=== PATIENT | female | born 1950 | race Caucasian/White ===

== ENCOUNTER → 2018-03-01 | Outpatient (CLI) | payer MEDICARE, BC ==
[~2018-03-01] MED LIST: REGADENOSON 0.4 MG/5 ML DISP.SYRIN. IV ONE
--- NOTE | 2018-03-01 12:01 | PCVCIMAG ---
APPROVED REPORT Study performed: 03/01/2018 08:28:16 EXAM: Comprehensive 2D, Doppler, and color-flow Echocardiogram Patient Location: Echo lab BSA: 1.89 HR: 90 bpmBP: 152/86 mmHg Rhythm: NSR W/ PACS Other Information Study Quality: Adequate Indications Palpitations Fatigue 2D Dimensions LVEF(%): 57.03 (>50%) IVSd: 9.78 (7-11mm) LVDd: 41.72 mm PWd: 10.40 (7-11mm)Ascending Ao: 30.45 (22-36mm) LVDs: 29.38 (25-40mm) Left Atrium: 28.65 (27-40mm) Aortic Root: 27.79 mm LV Single Plane 4CH: 61.17 % LV Single Plane 2CH: 61.67 %Khoury's LVEF: 61.42 % Biplane EF: 60.8 % Volumes Left Atrial Volume (Systole) Single Plane 4CH: 37.63 mLSingle Plane 2CH: 49.21 mL LA ESV Index: 25.00 mL/m2 Aortic Valve AoV Peak Samy.: 1.97 m/s AO Peak Gr.: 15.48 mmHgLVOT Max P.78 mmHg LVOT Max V: 1.09 m/s Mitral Valve E/A Ratio: 0.7 MV Decel. Time: 242.98 ms MV E Max Samy.: 0.64 m/s MV A Samy.: 0.92 m/s MV PHT: 70.46 ms IVRT: 124.57 ms Pulmonary Valve PV Peak Samy.: 1.00 m/sPV Peak Gr.: 4.00 mmHg Pulmonary Vein P Vein S: 0.31 m/sP Vein A: 0.35 m/s P Vein D: 0.43 m/sP Vein A Dur.: 121.1 msec P Vein S/D Ratio: 0.72 Tricuspid Valve TR Peak Samy.: 2.50 m/s TR Peak Gr.: 25.10 mmHg Left Ventricle The left ventricle is normal size. There is normal LV segmental wall motion. There is normal left ventricular wall thickness. Left ventricular systolic function is normal. The left ventricular ejection fraction is within the normal range. LVEF is 60%. Grade I - abnormal relaxation pattern. Right Ventricle The right ventricle is normal size. The right ventricular systolic function is normal. Atria The left atrium size is normal. Aneurysmal atrial septum motion without evidence of PFO. The right atrium size is normal. Aortic Valve The aortic valve is normal in structure. No aortic regurgitation is present. There is no aortic valvular stenosis. Mitral Valve The mitral valve is normal in structure. There is no mitral valve regurgitation noted. No evidence of mitral valve stenosis. Tricuspid Valve The tricuspid valve is normal in structure. Mild tricuspid regurgitation with PAP of 32 mmHg. Pulmonic Valve The pulmonary valve is normal in structure. Trace pulmonic regurgitation. Great Vessels The aortic root is normal in size. IVC is normal in size and collapses with >50% inspiration Pericardium There is no pericardial effusion. There is no pleural effusion. <Conclusion> The left ventricle is normal size. LVEF is 60%. Aneurysmal atrial septum motion without evidence of PFO. The aortic valve is normal in structure. The mitral valve is normal in structure. The tricuspid valve is normal in structure. Mild tricuspid regurgitation with PAP of 32 mmHg. The pulmonary valve is normal in structure. Trace pulmonic regurgitation. The aortic root is normal in size. There is no pericardial effusion.
--- NOTE | 2018-03-02 14:37 | PCVCIMAG ---
APPROVED REPORT Imaging Protocol: Rest Tc-99m/Stress Tc-99m 1 day Study performed: 03/01/2018 09:23:17 Indication: Fatigue, Palpitations Patient Location: Out-Patient Stress Nurse: Drea Peters RN NM Tech:Vinay Metz NMANDREYB Ht: 5 ft 5 in Wt: 179 lbs BSA: 1.89 m2 HR: 105 bpm BP: 144/87 mmHg BMI: 29.7 Rhythm: ST, NS ST abnormalities Medical History Medical History: Age, Hyperlipidemia, HTN Medications: Advair, Lisinopril, Proair, Simvastatin, Vascepa Allergies: Oxybutinin, Statins Pretest Chest Pain Characteristics: No chest pain Exercise History: Physically active Physical Disabilities: Fibromyalgia Resting Data Rest SPECT myocardial perfusion imaging was performed in supine position 45 minutes following the intravenous injection of 11.6 mCi of Tc-99m Sestamibi. Time of rest injection: 0900 Date: 03/01/2018 Administration Route: IV Administration Site: Right AC Pharmacologic Stress Pharmacologic stress test was performed by injecting Regadenoson 0.4 mg IV push over 10-15 seconds immediately followed by the intravenous injection of 32.2 mCi of Tc-99m Sestamibi. Time of stress injection: 1045 Date: 03/01/2018 Administration Route: IV Administration Site: Right AC Gated Stress SPECT was performed 45 minutes after stress injection. The images were gated to evaluate regional wall motion and calculate left ventricular ejection fraction. Stress Test Details Stress Test: Exercise stress testing was performed using a Claude protocol. HRMax Heart Rate (APMHR): 152 bpm Resting HR: 105 bpmTarget HR (85% APMHR): 129 bpm Max HR Achieved: 148 bpm % of APMHR: 97 Recovery HR: 108 bpm BP Resting BP: 144/87 mmHg Recovery BP: 151/71 mmHg ECG Resting ECG: Sinus Tachycardia, nonspecific ST abnormalities Stress ECG: Sinus Tachycardia, nonspecific ST abnormalities ST Change: Upsloping ST depression Maximum ST Deviation: 0.5 mm Arrhythmia: None Recovery ECG: Sinus Tachycardia, nonspecific ST abnormalities Recovery ST Change: None Recovery ST Deviation: 0 mm Clinical Reason for Termination: Dyspnea, Fatigue Stress Symptoms: Dyspnea Exercise duration: 6 min 20 sec Exercise capacity: 8.0 METs Overall Exercise Capacity for Age: Average Scale: Active Angina Score: None Symptoms resolved during recovery. Stress ECG Conclusion 1. Subjective lead developed dyspnea which may be an anginal equivalent 2. Electrocardiographically negative for ischemia 3. Reached functional capacity Ruiz Treadmill Score is 3.5 which is Moderate risk. Study Data Post stress, the left ventricular ejection was 65%.. SSS: 14 SRS: 7 SDS: 7 TID = 0.96. Perfusion There is a large area of severely reduced uptake in the entire segment of the anterior wall which is seen on the stress images as well as the resting images. This area thickens and moves normally and is most consistent with attenuation artifact. Wall Motion Normal left ventricular wall motion. Nuclear Conclusion ECG Findings: negative for ischemia Clinical Findings: equivocal Nuclear Findings: negative for ischemia Exercise Capacity: average Left Ventricular Function: normal 1. Low risk study Interpreted by: Margaux Holliday MD Electronically Approved: 03/02/2018 14:36:17 <Conclusion> 1. Subjective lead developed dyspnea which may be an anginal equivalent 2. Electrocardiographically negative for ischemia 3. Reached functional capacity
== END | disposition home or self-care (01) ==
LOC: PCVCIMAG 15:42
PROVIDERS: ATTEND Internal Medicine
DX: I07.1 Rheumatic tricuspid insufficiency (principal); E78.5 Hyperlipidemia, unspecified; I10 Essential (primary) hypertension; R06.00 Dyspnea, unspecified
CPT/HCPCS: 78452; 93017; 93306; A9500; J2785